=== PATIENT | male | born 1980 | race Caucasian/White ===

== ENCOUNTER 2017-12-03 20:25 | Emergency (ER) | payer SELFPAY ==
[~2017-12-03] VITALS: Ht 190.5 cm; Wt 86.2 kg
[~2017-12-03 20:25] MED LIST: CEPH500 PO; CIPR500 PO; HYDACE5 PO; HYDACE7.5 PO; HYDMOR2 PO; IBUP800 PO; OXYACE5T PO; OXYACE7.5T PO; RXCLIN PO; TAMS.4ER PO
[2017-12-03] MEDS ORDERED: IBUP600 PO (22:10)
[2017-12-03] MEDS ORDERED: Keflex500 MG PO (22:10)
== END 2017-12-03 22:51 | disposition home or self-care (01) ==
LOC: ER 20:25
DX: S62.522B Displaced fracture of distal phalanx of left thumb, initial encounter for open fracture (principal); Z23 Encounter for immunization; F17.200 Nicotine dependence, unspecified, uncomplicated; W27.0XXA Contact with workbench tool, initial encounter
CPT/HCPCS: 12002; 29125; 73140; 90471; 90714; 99283

== ENCOUNTER 2021-09-15 22:42 | Emergency (ER) | payer SELFPAY ==
[~2021-09-15 22:42] MED LIST changes: +IBUP600 PO; +Keflex500 MG PO
== END 2021-09-15 23:47 | disposition left against medical advice (07) ==
LOC: ER 22:42
DX: Z53.21 Procedure and treatment not carried out due to patient leaving prior to being seen by health care provider (principal)

== ENCOUNTER 2022-08-05 06:09 | Day surgery (SDC) | payer OTHER ==
[~2022-08-05] VITALS: Ht 188 cm; Wt 108.4 kg
--- NOTE | 2022-08-05 07:13 | NUR ---
History, Chart, Medications and Allergies reviewed before start of procedure. Patient confirms NPO status and agrees with scheduled surgery. Patient states he has high blood pressure when he goes to the doctor, but normal when he is home at rest. Patient placed silver-tone ring in his patient belonging bag, which was placed under the bed for safe keeping. He has no visitors here. Plan for his mom to drive home post-op. Dr. Echavarria at bedside and answering questions about when to go back to work and resume physical activity.
--- NOTE | 2022-08-05 07:49 | NUR ---
PRIOR TO BRINGING PATIENT TO OR, ABRATIONS NOTED TO WHERE HAIR CLIPPED TO GROIN BILAT. THIS AREA WAS OBSERVED BY DR KAPADIA WHILE MARKING THE SURGERY SITE IN PRE-OP.
--- NOTE | 2022-08-05 13:21 | NUR ---
PT GIVEN WRITTEN AND VERBAL DISCHARGE INSTURCTIONS. AMBULATING WELL. PAIN IS TOLERABLE 2 OUT 10. NO NAUSEA REPORTED. DRESSING DRY AND INTACT. PT MOTHER DRIVING HIM HOME.
== END 2022-08-05 13:16 | disposition home or self-care (01) ==
LOC: ORSCMMR 06:09 → ORD 07:30 → ORSCMMR 07:30
PROVIDERS: Surgery
PROC: 0YJ64ZZ Inspection of Left Inguinal Region, Percutaneous Endoscopic Approach (ICD-10-PCS; 2022-08-05)
PROC: 8E0W4CZ Robotic Assisted Procedure of Trunk Region, Percutaneous Endoscopic Approach (ICD-10-PCS; principal; 2022-08-05 07:30)
PROC: 0YU64JZ Supplement Left Inguinal Region with Synthetic Substitute, Percutaneous Endoscopic Approach (ICD-10-PCS; principal; 2022-08-05 07:30)
DX: K40.30 Unilateral inguinal hernia, with obstruction, without gangrene, not specified as recurrent (principal); K57.30 Diverticulosis of large intestine without perforation or abscess without bleeding; I10 Essential (primary) hypertension; E66.9 Obesity, unspecified; Z68.30 Body mass index [BMI] 30.0-30.9, adult; F17.290 Nicotine dependence, other tobacco product, uncomplicated
CPT/HCPCS: 49650; S2900; A9270; C1781; J0690; J1100; J1885; J2250; J2405; J2704; J2795; J3010; J7120

== ENCOUNTER 2023-02-27 05:56 | Emergency (ER) | payer OTHER ==
[~2023-02-27] VITALS: Ht 182.9 cm; Wt 113.4 kg
[2023-02-27 06:09] VITALS: BP 144/92
== END 2023-02-27 08:04 | disposition home or self-care (01) ==
LOC: ER 05:56
DX: S30.1XXA Contusion of abdominal wall, initial encounter (principal); M25.551 Pain in right hip; M54.2 Cervicalgia; R51.9 Headache, unspecified; Y09 Assault by unspecified means; F17.200 Nicotine dependence, unspecified, uncomplicated
CPT/HCPCS: 73502